=== PATIENT | female | born 1995 | race African-American/Black ===

== ENCOUNTER 2024-07-04 13:27 | Emergency (ER) | payer OTHER ==
[2024-07-04 13:34] VITALS: BP 111/52; PULSE 72; RESP 20; TEMP 97.6; BMI 20.5
== END 2024-07-04 14:33 | disposition home or self-care (01) ==
LOC: JERFT 13:27
DX: Z48.02 Encounter for removal of sutures (principal)
CPT/HCPCS: 99281-25